=== PATIENT | female | born 1960 | race Caucasian/White ===

== ENCOUNTER 2018-05-30 14:37 | Outpatient (CLI) | payer BC | END 2018-05-30 23:59 | disposition home or self-care (01) | LOC: RAD 14:37 | PROVIDERS: ATTEND Family Medicine Sports Medicine | DX: S36.00XA Unspecified injury of spleen, initial encounter (principal); Z87.891 Personal history of nicotine dependence; X58.XXXA Exposure to other specified factors, initial encounter; Y93.89 Activity, other specified; Y92.89 Other specified places as the place of occurrence of the external cause; Y99.8 Other external cause status | CPT/HCPCS: 76705 ==